=== PATIENT | female | born 1940 | race Caucasian/White ===

== ENCOUNTER 2017-04-18 10:47 | Inpatient (IN) | payer OTHER, MEDICAID ==
[~2017-04-18] VITALS: Ht 160 cm; Wt 59.0 kg
[2017-04-18] MEDS ORDERED: QUET25TA PO (11:37)
[2017-04-18] MEDS ORDERED: CARB-93 PO (11:37)
[2017-04-18] MEDS ORDERED: HYDR-3326 PO (11:37)
[2017-04-18] MEDS ORDERED: ACET-2154 PO (11:37)
[2017-04-18] MEDS ORDERED: DEXT15DR6 LEFTEYE (11:37)
[2017-04-18] MEDS ORDERED: PRAM0.253 PO (11:37)
[2017-04-18] MEDS ORDERED: PANT40TA2 PO (11:37)
[2017-04-18] MEDS ORDERED: CITA20TA19 PO (11:37)
[2017-04-18] MEDS ORDERED: AMIT25TA9 PO (11:37)
[2017-04-18] MEDS ORDERED: CALC-883 PO (11:37)
[2017-04-18] MEDS ORDERED: HALO2TAB PO (11:37)
[2017-04-18] MEDS ORDERED: LEVO25TA9 PO (11:37)
[2017-04-18] MEDS ORDERED: SENN-167 PO (11:37)
[2017-04-18] MEDS ORDERED: GABA100C PO (11:37)
[2017-04-18] MEDS ORDERED: IV NORMAL SALINE 500 ML BAG IV ONE (12:00)
[2017-04-18 12:16] LABS: BASOPHILS # (AUTO) 0.1 K/uL (0.0-8.0); BASOPHILS % (AUTO) 0.8 % (0.0-2.0); EOSINOPHILS # (AUTO) 0.3 K/uL (0.0-0.7); EOSINOPHILS % (AUTO) 4.6 % (0.0-7.0); HEMATOCRIT 33.7 % (37-47); HEMOGLOBIN 11.3 G/DL (12.0-16.0); LYMPHOCYTES # (AUTO) 1.1 K/UL (0.8-4.8); LYMPHOCYTES % (AUTO) 16.2 % (20.5-51.5); MEAN CORPUSCULAR HEMOGLOBIN 31.1 UUG (27.0-31.0); MEAN CORPUSCULAR HGB CONC 34 g/dL (32.0-37.0); MEAN CORPUSCULAR VOLUME 92.7 FL (81.0-99.0); MONOCYTES # (AUTO) 0.5 K/UL (0.1-1.30); MONOCYTES % (AUTO) 7.2 % (0.0-11.0); NEUTROPHILS # (AUTO) 4.8 K/UL (1.8-8.9); NEUTROPHILS % (AUTO) 71.2 % (38.5-71.5); PLATELET COUNT (AUTO) 137 K/UL (150-450); RED BLOOD CELL COUNT(AUTO) 3.64 MIL/UL (4.2-5.4); WHITE BLOOD COUNT (AUTO) 6.8 K/UL (4.0-11.2)
[2017-04-18 12:29] LABS: CARBON DIOXIDE 32 mmol/L (21-32); CHLORIDE 104 mmol/L (98-107); CREATININE 0.9 mg/dL (0.6-1.3); GLUCOSE 101 mg/dL (74-106); POTASSIUM 4.2 mmol/L (3.5-5.1); UREA NITROGEN, BLOOD 19 mg/dL (7-18)
[2017-04-18 12:43] LABS: ALANINE AMINOTRANSFERASE 13 U/L (14-59); ALKALINE PHOSPHATASE 75 U/L (50-136); ASPARTATE AMINOTRANSFERASE 19 U/L (15-37); BILIRUBIN,DIRECT 0.2 mg/dL (0.0-0.2); BILIRUBIN,TOTAL 0.6 mg/dL (0.2-1.0); LIPASE 98 U/L (73-393)
--- NOTE | 2017-04-18 14:27 | NUR ---
Pt states she thinks her Parkinsons is getting worse, having increasing difficulty swallowing over last 2-3 weeks. Pt denies CP, SOB, dizziness, n/v, no other complaints, no distress noted.
--- NOTE | 2017-04-18 14:58 | NUR ---
Called report to [facility].
[2017-04-18 15:38] VITALS: BP 169/76
--- NOTE | 2017-04-18 16:02 | NUR ---
76 YEAR OLD FEMALE ADMITTED TO ROOM 216 FOR FAILURE TO THRIVE.PT IS AXOX3.V/S ARE STABLE ,ORIENT THE PT TO ROOM AND SURROUNDINGS, CALLED FOR ORDERS,
[2017-04-18 20:00] VITALS: BP 132/51
--- NOTE | 2017-04-18 20:00 | NUR ---
patient awake, alert,oriented ,no acute distress,tolerated dinner 60-70%,fall and aspiration precautions reinforced patient verbalized understanding,continue closely monitor.
--- NOTE | 2017-04-18 21:30 | NUR ---
CT head w/o contrast done,NSR on telemonitor.
[2017-04-18] MEDS ORDERED: TEMAZEPAM 15 MG CAPSULE PO PRN (21:45)
[2017-04-18] MEDS ORDERED: SENNOSIDES 1 TABLET PO PRN (21:45)
[2017-04-18] MEDS ORDERED: ACETAMINOPHEN 325 MG TABLET PO PRN (21:45)
[2017-04-18] MEDS ORDERED: ONDANSETRON 4 MG/2 ML VIAL IV PRN (21:45)
[2017-04-18] MEDS: CARBIDOPA/LEVODOPA 25-100MG TABLET PO SCH (22:02)
[2017-04-18] MEDS ORDERED: TEMAZEPAM 15 MG CAPSULE ONE (22:15)
[2017-04-18] MEDS ORDERED: CARBIDOPA/LEVODOPA 25-100MG TABLET ONE (22:16)
[2017-04-19] VITALS: BP 143/72
--- NOTE | 2017-04-19 01:17 | NUR ---
patient slept well after took Restoril for c/o insomnia.
[2017-04-19 04:00] VITALS: BP 157/61
--- NOTE | 2017-04-19 06:00 | NUR ---
NSR ON MONITOR,INCONTINENCE OF URINE,SKIN CARE ,PROTECTIVE MEASURE PROVIDED,BED ALARM ON.
[2017-04-19 06:54] LABS: THYROID STIMULATING HORMONE 1.614 mIU/mL (0.358-3.740)
[2017-04-19 07:00] LABS: BASOPHILS % (AUTO) 0.5 % (0.0-2.0); EOSINOPHILS # (AUTO) 0.5 K/uL (0.0-0.7); EOSINOPHILS % (AUTO) 7.6 % (0.0-7.0); HEMATOCRIT 34.4 % (37-47); HEMOGLOBIN 11.5 G/DL (12.0-16.0); LYMPHOCYTES # (AUTO) 1.8 K/UL (0.8-4.8); LYMPHOCYTES % (AUTO) 27.2 % (20.5-51.5); MEAN CORPUSCULAR HEMOGLOBIN 31.2 UUG (27.0-31.0); MEAN CORPUSCULAR HGB CONC 34 g/dL (32.0-37.0); MEAN CORPUSCULAR VOLUME 93.1 FL (81.0-99.0); MONOCYTES # (AUTO) 0.5 K/UL (0.1-1.30); MONOCYTES % (AUTO) 7.3 % (0.0-11.0); NEUTROPHILS # (AUTO) 3.9 K/UL (1.8-8.9); NEUTROPHILS % (AUTO) 57.4 % (38.5-71.5); PLATELET COUNT (AUTO) 140 K/UL (150-450); WHITE BLOOD COUNT (AUTO) 6.7 K/UL (4.0-11.2)
[2017-04-19 07:18] LABS: IRON, SERUM 58 ug/dL (50-175)
[2017-04-19 08:04] LABS: ALANINE AMINOTRANSFERASE 11 U/L (14-59); ALKALINE PHOSPHATASE 77 U/L (50-136); ASPARTATE AMINOTRANSFERASE 18 U/L (15-37); BILIRUBIN,TOTAL 0.7 mg/dL (0.2-1.0); CARBON DIOXIDE 30 mmol/L (21-32); CHLORIDE 107 mmol/L (98-107); CHOLESTEROL 128 mg/dL (<200); CREATININE 0.8 mg/dL (0.6-1.3); GLUCOSE 77 mg/dL (74-106); HDL CHOLESTEROL 54 mg/dL (40-60); TOTAL PROTEIN, SERUM 5.8 g/dL (6.4-8.2); TRIGLYCERIDES 60 MG/DL (30-150); UREA NITROGEN, BLOOD 17 mg/dL (7-18)
[2017-04-19] MEDS: PANTOPRAZOLE SODIUM 40 MG TABLET.DR PO SCH (08:28)
[2017-04-19] MEDS: CALCIUM CARB/VITAMIN D 500MG-200UNITS TABLET PO SCH ×2 (08:28→16:32)
[2017-04-19] MEDS: AMITRIPTYLINE HCL 25 MG TABLET PO SCH (08:28)
[2017-04-19] MEDS: PRAMIPEXOLE 0.25 MG TABLET PO SCH ×3 (08:28→18:52)
[2017-04-19] MEDS: LEVOTHYROXINE SODIUM 25 MCG TABLET PO SCH (08:28)
[2017-04-19] MEDS: GABAPENTIN 100 MG CAPSULE PO SCH (08:28)
[2017-04-19] MEDS: CARBIDOPA/LEVODOPA 25-100MG TABLET PO SCH ×3 (08:28→16:33)
[2017-04-19] MEDS ORDERED: PANTOPRAZOLE SODIUM 40 MG TABLET.DR PO SCH (09:00)
[2017-04-19] MEDS: CITALOPRAM 20 MG TABLET PO SCH (09:43)
[2017-04-19] MEDS: METOPROLOL TARTRATE 25 MG TABLET PO SCH ×2 (10:16→20:53)
[2017-04-19 11:04] VITALS: BP 118/55
[2017-04-19 15:24] VITALS: BP 98/41
[2017-04-19 20:00] VITALS: BP 98/48
--- NOTE | 2017-04-19 20:00 | NUR ---
RECEIVED PATIENT AWAKE IN BED, ON LAPTOP. PATIENT IS A/O X3. DENIES ANY PAIN OR DISCOMFORT. NO RESP. DISTRESS NOTED. H/L INTACT AND PATENT. CALL LIGHT IN REACH. ALL NEEDS ATTENDED. WILL CONTINUE TO MONITOR.
[2017-04-19] MEDS: QUETIAPINE FUMARATE 25 MG TABLET PO SCH (20:53)
--- NOTE | 2017-04-20 05:28 | NUR ---
PATIENT AWAKE IN BED. SLEPT WELL THROUGHOUT THE NIGHT. DENIES PAIN OR DISCOMFORT. NO RESP. DISTRESS NOTED. CALL LIGHT IN REACH. ALL NEEDS ATTENDED. WILL CONTINUE TO MONITOR.
[2017-04-20 06:02] VITALS: BP 163/74
[2017-04-20] MEDS: METOPROLOL TARTRATE 25 MG TABLET PO SCH ×2 (06:06→20:34)
[2017-04-20] MEDS: LEVOTHYROXINE SODIUM 25 MCG TABLET PO SCH (06:06)
[2017-04-20] MEDS: PANTOPRAZOLE SODIUM 40 MG TABLET.DR PO SCH (06:06)
[2017-04-20] MEDS: ACETAMINOPHEN 325 MG TABLET PO PRN ×2 (06:16→12:17)
--- NOTE | 2017-04-20 08:00 | NUR ---
RECEIVED PATIENT IN BED AWAKE ALERT ORIENTED X3 COMPLIANT WITH MEDICATIONS AND CARE DENIES PAIN OR DISCOMFORTS AT THIS TIME.PATIENT IS FEEDING SELF WITH FAIR APPETITE NO DIFFICULTY SWALLOWING CALL LIGHTS AND PERSONAL BELONGINGS ARE WITHIN EASY REACH NOT IN DISTRESS.
[2017-04-20] MEDS: GABAPENTIN 100 MG CAPSULE PO SCH (08:06)
[2017-04-20] MEDS: CITALOPRAM 20 MG TABLET PO SCH (08:06)
[2017-04-20] MEDS: CALCIUM CARB/VITAMIN D 500MG-200UNITS TABLET PO SCH ×2 (08:06→16:10)
[2017-04-20] MEDS: CARBIDOPA/LEVODOPA 25-100MG TABLET PO SCH ×3 (08:06→16:10)
[2017-04-20] MEDS: AMITRIPTYLINE HCL 25 MG TABLET PO SCH (08:06)
[2017-04-20] MEDS: PRAMIPEXOLE 0.25 MG TABLET PO SCH ×3 (08:06→16:42)
[2017-04-20 11:37] VITALS: BP 131/52
--- NOTE | 2017-04-20 12:58 | NUR ---
PATIENT IS ALERT AND VERBALLY RESPONDS C/O GENERALISED PAIN MEDICATED WITH TYLENOL ORDERED REPOSITIONED FOR COMFORT AND WILL CONTINUE TO OBSERVE.
[2017-04-20 15:40] VITALS: BP 126/56
--- NOTE | 2017-04-20 17:21 | NUR ---
PATIENT SEEN AND EXAMINED BY DR SILVA WITH NO NEW ORDERS AT THIS TIME.
--- NOTE | 2017-04-20 18:16 | NUR ---
PER PATIENT SHE RECEIVED THE PNEUMONIA SHOT LAST YEAR IS IS DUE FOR THE FLU SHOT BUT I TRIED TO ORDER THE FLU SHOT FOR HER IT STATED THAT SINCE SHE HAS LATEX ALLERGY UNABLE TO CONTINUE SO I SPOKE WITH THE PATIENT ANS SHE DENIES HAVING LATEX ALLERGY SO I CALLED HER DAUGHTER DESSIRRE AND LEFT HER A MESSAGE TO CONFIRM ALLERGIES.
--- NOTE | 2017-04-20 18:21 | NUR ---
PATIENTS DAUGHTER RETURNED CALL AND STATED THAT PATIENT RECEIVED BOTH FLU AND PNEUMONIA SHOTS IN NOVEMBER 2016 AND THAT SHE IS ALLERGIC TO LATEX.
--- NOTE | 2017-04-20 19:35 | NUR ---
RECEIVED PATIENT IN BED, NO SOB NO CHEST PAIN, NO COMPLAIN OF PAIN AT THIS TIME, TOLERATE PO MEDS, NO COUGHING NO CHOKING NOTED, KEPT CLEAN AND DRY. CALL LIGHT WITHIN REACH.
[2017-04-20 20:25] VITALS: BP 111/40
[2017-04-20] MEDS: QUETIAPINE FUMARATE 25 MG TABLET PO SCH (20:32)
[2017-04-21] MEDS: PANTOPRAZOLE SODIUM 40 MG TABLET.DR PO SCH (06:09)
[2017-04-21] MEDS: LEVOTHYROXINE SODIUM 25 MCG TABLET PO SCH (06:09)
[2017-04-21 06:18] VITALS: BP 163/63
--- NOTE | 2017-04-21 06:28 | NUR ---
PATIENT SLEPT MOST OF THE NIGHT, NO SOB NO CHEST PAIN NOTED, NO COMPLAIN OF PAIN, TURN AND REPOSITION, KEPT CLEAN AND DRY, RENDERED GOOD ORAL CARE, CALL LIGHT WITHIN REACH, URINE SPECIMEN SEND.
[2017-04-21 06:42] LABS: BASOPHILS # (AUTO) 0.1 K/uL (0.0-8.0); BASOPHILS % (AUTO) 0.8 % (0.0-2.0); EOSINOPHILS # (AUTO) 0.5 K/uL (0.0-0.7); EOSINOPHILS % (AUTO) 6.9 % (0.0-7.0); HEMATOCRIT 33.5 % (37-47); HEMOGLOBIN 11.3 G/DL (12.0-16.0); LYMPHOCYTES # (AUTO) 1.6 K/UL (0.8-4.8); LYMPHOCYTES % (AUTO) 24.4 % (20.5-51.5); MEAN CORPUSCULAR HEMOGLOBIN 31.6 UUG (27.0-31.0); MEAN CORPUSCULAR HGB CONC 34 g/dL (32.0-37.0); MEAN CORPUSCULAR VOLUME 93.2 FL (81.0-99.0); MONOCYTES # (AUTO) 0.5 K/UL (0.1-1.30); MONOCYTES % (AUTO) 8.2 % (0.0-11.0); NEUTROPHILS % (AUTO) 59.7 % (38.5-71.5); PLATELET COUNT (AUTO) 147 K/UL (150-450); RED BLOOD CELL COUNT(AUTO) 3.59 MIL/UL (4.2-5.4); WHITE BLOOD COUNT (AUTO) 6.7 K/UL (4.0-11.2)
[2017-04-21 06:50] LABS: CARBON DIOXIDE 30 mmol/L (21-32); CHLORIDE 108 mmol/L (98-107); CREATININE 0.9 mg/dL (0.6-1.3); GLUCOSE 86 mg/dL (74-106); MAGNESIUM 1.9 mg/dL (1.8-2.4); PHOSPHOROUS 3.8 mg/dL (2.5-4.9); POTASSIUM 3.8 mmol/L (3.5-5.1); UREA NITROGEN, BLOOD 21 mg/dL (7-18)
--- NOTE | 2017-04-21 07:45 | NUR ---
RECEIVED PATIENT AWAKE ALERT AND AWARE DENIES PAIN OR DISCOMFORTS AT THIS TIME STATED THAT SHE SLEPT WELL LAST NITE.CALL LIGHTS AND PERSONAL BELONGINGS ARE WITHIN EASY REACH AND PATIENT CHECKED ON HOURLY ROUNDS MADE COMFORTABLE AND WILL CONTINUE TO OBSERVE.
[2017-04-21 07:47] LABS: *BILIRUBIN,URIN NEGATIVE (NEGATIVE); *BLOOD, URINE NEGATIVE (NEGATIVE); *CLARITY,URINE CLOUDY (CLEAR); *COLOR,URINE YELLOW (YELLOW); *KETONES,URINE NEGATIVE (NEGATIVE); *PROTEIN,URINE NEGATIVE (NEGATIVE); *UROBILINOGEN,URINE 0.2 E.U./dl (NORMAL); LEUKOCYTE ESTERASE ,URINE 2+ (NEGATIVE); NITRITE, URINE POSITIVE (NEGATIVE); UGLUCOSE NEGATIVE (NEGATIVE)
[2017-04-21 08:07] LABS: RBC,URINE 0-3 /HPF (0-3); WBC,URINE 20-50 /HPF (0-3)
[2017-04-21 08:08] LABS: BACTERIA,URINE MANY /HPF (NONE SEEN); SQUAMOUS EPITHELIAL CELL,UR FEW /HPF (NONE SEEN)
[2017-04-21] MEDS: CALCIUM CARB/VITAMIN D 500MG-200UNITS TABLET PO SCH ×2 (08:15→16:34)
[2017-04-21] MEDS: AMITRIPTYLINE HCL 25 MG TABLET PO SCH (08:15)
[2017-04-21] MEDS: GABAPENTIN 100 MG CAPSULE PO SCH (08:15)
[2017-04-21] MEDS: CITALOPRAM 20 MG TABLET PO SCH (08:16)
[2017-04-21] MEDS: PRAMIPEXOLE 0.25 MG TABLET PO SCH ×3 (08:16→16:34)
[2017-04-21] MEDS: CARBIDOPA/LEVODOPA 25-100MG TABLET PO SCH ×3 (08:16→16:34)
[2017-04-21] MEDS: METOPROLOL TARTRATE 25 MG TABLET PO SCH ×2 (08:17→20:17)
--- NOTE | 2017-04-21 09:35 | NUR ---
NEW ORDERS NOTED FROM DR SILVA TO START PATIENT ON IV ANTIBIOTICS FOR URINARY TRACT INFECTION AND NOTED.
[2017-04-21] MEDS: CEFTRIAXONE 1 G in IV DEXTROSE 5% 50 ML IV SCH (09:56)
[2017-04-21 11:59] VITALS: BP 104/52
--- NOTE | 2017-04-21 13:29 | NUR ---
IV SITE INFILTERATED AND A NEW ONE INSERTED TO HER LEFT WRIST WITH ONE ATTEMPT AND IV ANTIBIOTICS GIVEN ORDERED AND TOLERATED WELL WITH NO ADVERSE OR ALLERGIC REACTIONS AT THIS TIME.
[2017-04-21 15:46] VITALS: BP 140/47
--- NOTE | 2017-04-21 17:18 | NUR ---
CT LUMBAR SPINE DONE ORDERED AND WILL CHECK RESULT.PATIENT IS AWAKE ALERT AND AWARE BUT FORGETFUL VERBALISED SIMPLE NEEDS DENIES PAIN OR DISCOMFORTS AT THIS TIME AND WILL CONTINUE TO OBSERVE.
[2017-04-21 20:00] VITALS: BP 95/47
--- NOTE | 2017-04-21 20:00 | NUR ---
PT RECEIVED SITTING UP IN NO ACUTE DISTRESS. PT CALM AND COOPERATIVE, AOX3 BUT FORGETFUL. HEP LOCK TO RIGHT WRIST, INTACT AND PATENT. ON ROOM AIR. BED IN LOW AND LOCKED POSITION. WILL CONTINUE TO MONITOR FOR SAFETY.
[2017-04-21] MEDS: Z GUARD REMEDY PASTE 57 GM TUBE TOP SCH (20:19)
[2017-04-21] MEDS: QUETIAPINE FUMARATE 25 MG TABLET PO SCH (20:20)
[2017-04-22] MEDS: ACETAMINOPHEN 325 MG TABLET PO PRN ×2 (05:15→14:40)
[2017-04-22] MEDS: LEVOTHYROXINE SODIUM 25 MCG TABLET PO SCH (06:09)
[2017-04-22] MEDS: PANTOPRAZOLE SODIUM 40 MG TABLET.DR PO SCH (06:09)
[2017-04-22 06:31] VITALS: BP 153/65
--- NOTE | 2017-04-22 07:45 | NUR ---
RECEIVED PATIENT IN BED ASLEEP BUT AROUSES EASILY STATED DID NOT SLEEP MUCH LAST NITE BUT DENIES PAIN OR DISCOMFORTS AT THIS TIME.PATIENT HAS NO ADVERSE OR ALLERGIC REACTIONS FROM HER IV ANTIBIOTICS STARTED YESTERDAY FOR HER BLADDER INFECTION.
[2017-04-22] MEDS: CARBIDOPA/LEVODOPA 25-100MG TABLET PO SCH ×3 (08:38→16:46)
[2017-04-22] MEDS: GABAPENTIN 100 MG CAPSULE PO SCH (08:38)
[2017-04-22] MEDS: PRAMIPEXOLE 0.25 MG TABLET PO SCH ×3 (08:38→16:49)
[2017-04-22] MEDS: AMITRIPTYLINE HCL 25 MG TABLET PO SCH (08:38)
[2017-04-22] MEDS: CALCIUM CARB/VITAMIN D 500MG-200UNITS TABLET PO SCH ×2 (08:38→16:47)
[2017-04-22] MEDS: METOPROLOL TARTRATE 25 MG TABLET PO SCH (08:39)
[2017-04-22] MEDS: CITALOPRAM 20 MG TABLET PO SCH (08:39)
[2017-04-22] MEDS: CEFTRIAXONE 1 G in IV DEXTROSE 5% 50 ML IV SCH (08:43)
[2017-04-22] MEDS: Z GUARD REMEDY PASTE 57 GM TUBE TOP SCH (08:43)
[2017-04-22] MEDS ORDERED: FLUDROCORTISONE ACETATE 0.1 MG TABLET PO SCH (09:00)
[2017-04-22 11:54] VITALS: BP_SYST 94; BP_SYST 98; BP_DIAS 48
--- NOTE | 2017-04-22 13:46 | NUR ---
call center coordinator Re: Discharge planning Spoke to Janeth at [facility] regarding patient discharge planning. Patient family wishes for patient to go to [place] however this is not a contracted facility. A list of contracted facilities has been faxed to patient daughter, Annmarie. Family would like to do some research and decide which of these contracted facilities she'd like her mother to go to. Will f/u later today. Daughter has cyanide case hardener direct number.
[2017-04-22 15:46] VITALS: BP 119/47
--- NOTE | 2017-04-22 15:52 | NUR ---
real estate development manager discharge planning [facility], [facility], [facility] and [facility] all fax[facility] in order to find placement for patient. Family accepted at [facility] but prefers not to have patient go. [facility], we are waiting to hear back from. Will fax [facility], families second choice.
--- NOTE | 2017-04-22 16:16 | NUR ---
Transportation set with [facility] at [phone]. [employer]ist [employer] to provide authorization. Daughter Annmarie aware. Patient to be discharged at 7:30 pm. LEESA Huggins notified of discharge plan and time.
[2017-04-22] MEDS ORDERED: FLUD0.1T3 PO (17:32)
[2017-04-22] MEDS ORDERED: CEFT1VIA15 IV (17:32)
[2017-04-22] MEDS ORDERED: DOCU-141 PO (17:33)
--- NOTE | 2017-04-22 18:15 | NUR ---
CALLED [facility] SPOKE WITH AYUSH AND GAVE HER REPORT FOR CONTINUING CARE.PATIENT WILL CONTINUE ON IV ANTIBIOTICS FOR 5 MORE DAYS.PATIENT HAS PERSONAL BELONGINGS SUCH UPPER AND LOWER DENTURES,GABRIELLA,106 DOLLARS A VISA CARD, A BLACK PURSE PHONE AND COUNTY DIRECTOR WELFARE.AYUSH WAS NOTIFIED THAT THESE BELONGINGS ARE COMING WITH THE PATIENT TO MAKE SURE THAT SHE IDENTIFIES THESE ITEMS UPON ARRIVAL AND SHE EXPRESSED UNDERSTANDING.
--- NOTE | 2017-04-22 18:30 | NUR ---
CALLED PATIENTS DAUGHTER LEOPOLDO AND NOTIFIED HER THAT PATIENT HAS BEEN DISCHARGED AND WILL BE PICKED UP BY THE AMBULANCE ABOUT [facility] TO [facility] WITH ALL HER PERSONAL BELONGINGS AND SHE EXPRESSED UNDERSTANDING AND STATED THAT SHE WILL GO TO THE [facility] TO VISIT HER MOM WHEN SHE GETS OFF FROM WORK.
--- NOTE | 2017-04-22 19:00 | NUR ---
AWAITING FOR PATIENT TO BE PICKED UP BY THE AMBULANCE ARRANGED BY THE TAX SERVICES MANAGER.
--- NOTE | 2017-04-22 19:33 | NUR ---
[facility] HERE AND REPORT GIVEN TO THEM RE PATIENTS CONTINUING CARE WITH ALL HER PERSONAL BELONGINGS IN SATISFACTORY CONDITION.
== END 2017-04-22 19:00 | DRG 73 ==
LOC: ER 10:48 → TELE 15:16 → MED 04-19 14:24
PROVIDERS: ADMIT Internal Medicine; ATTEND Internal Medicine
PROC: 02HV33Z Insertion of Infusion Device into Superior Vena Cava, Percutaneous Approach (ICD-10-PCS; principal; 2017-04-21)
DX: G90.8 Other disorders of autonomic nervous system (principal); G93.41 Metabolic encephalopathy; D68.59 Other primary thrombophilia; G20 Parkinson's disease; R13.10 Dysphagia, unspecified; M41.9 Scoliosis, unspecified; N39.0 Urinary tract infection, site not specified; F02.80 Dementia in other diseases classified elsewhere, unspecified severity, without behavioral disturbance, psychotic disturbance, mood disturbance, and anxiety; M19.90 Unspecified osteoarthritis, unspecified site; F41.9 Anxiety disorder, unspecified; F32.9 Major depressive disorder, single episode, unspecified; Z88.0 Allergy status to penicillin; Z91.040 Latex allergy status; E03.9 Hypothyroidism, unspecified; G89.29 Other chronic pain; K21.9 Gastro-esophageal reflux disease without esophagitis; M81.0 Age-related osteoporosis without current pathological fracture; R62.7 Adult failure to thrive; Z79.899 Other long term (current) drug therapy; Z91.19 Patient's noncompliance with other medical treatment and regimen; Z74.09 Other reduced mobility; F17.210 Nicotine dependence, cigarettes, uncomplicated; M48.00 Spinal stenosis, site unspecified; M47.9 Spondylosis, unspecified; D64.9 Anemia, unspecified; B96.20 Unspecified Escherichia coli [E. coli] as the cause of diseases classified elsewhere
CPT/HCPCS: 36415; 70030-TC; 70450; 71010; 72131; 83550; 83690; 83735; 84100; 84443; 85025; 85730; 87077; 87086; 92610; 93005; 97116; 97530; A4663; C1758; J0696; J7030; J7040; J7050; J7060